=== PATIENT | female | born 2000 ===

== ENCOUNTER 2019-03-20 21:54 | Emergency (ER) | payer OTHER ==
[2019-03-20 22:06] VITALS: BP 112/71
--- NOTE | 2019-03-20 22:07 | UC ---
Throat Pain/Nasal Emile HPI - HPI Summary HPI Summary: 19 yo female presents with 2months of intermittent sinus congestion and post nasal drip with sore throat and cough. Over the last week pt has had increased sinus pressure and runny nose. She has been taking allergy medicine OTC with no relief. Denies fever, chills, sob, rash. - History of Current Complaint Chief Complaint: UCGeneralIllness Stated Complaint: COLD SYM Time Seen by Provider: 03/20/19 22:07 Hx Obtained From: Patient Hx Last Menstrual Period: IUD Onset/Duration: Gradual Onset Severity: Mild Pain Intensity: 2 Pain Scale Used: 0-10 Numeric - Allergies/Home Medications Allergies/Adverse Reactions: Allergies Allergy/AdvReac Type Severity Reaction Status Date / Time No Known Allergies Allergy Verified 03/20/19 22:02 Home Medications: Home Medications Iud 1 applic VAGINAL ONCE 03/20/19 [History Confirmed 03/20/19] PMH/Surg Hx/FS Hx/Imm Hx - Additional Past Medical History Additional PMH: None - Surgical History Surgical History: Yes Surgery Procedure, Year, and Place: Bilateral Ear tubes - Family History Known Family History: Positive: None - Social History Occupation: Student Lives: Dormitory/Roommates Alcohol Use: Weekly Alcohol Amount: 3 x weekly Substance Use Type: Marijuana Substance Use Comment - Amount & Last Used: 1 Week ago- weekend use Smoking Status (MU): Never Smoked Tobacco Review of Systems All Other Systems Reviewed And Are Negative: Yes Constitutional: Positive: Negative Skin: Positive: Negative Eyes: Positive: Negative ENT: Positive: Sore Throat, Nasal Discharge, Sinus Congestion, Sinus Pain/ Tenderness Respiratory: Positive: Negative Cardiovascular: Positive: Negative Gastrointestinal: Positive: Negative Physical Exam - Summary Physical Exam Summary: GENERAL: NAD. WDWN. No pain distress. SKIN: No rashes, sores, lesions, or open wounds. HEENT: Head: AT/NC Eyes: EOM intact. Conjunctiva clear without inflammation or discharge. Ears: Hearing grossly normal. TMs intact, no bulging, erythema, or edema. Nose: Nasal mucosa mildly swollen and erythematous with yellow/ clear discharge. TTP maxillary and frontal sinus. Positive post nasal drip Throat: Posterior oropharynx without exudates, erythema, or tonsillar enlargement. Uvula midline. NECK: Supple. Nontender. No lymphadenopathy. CHEST: CTAB. No r/r/w. No accessory muscle use. Breathing comfortably and in no distress. CV: RRR. Without m/r/g. Pulses intact. NEURO: Alert. PSYCH: Age appropriate behavior. Triage Information Reviewed: Yes Vital Signs: Initial Vital Signs Temp 98.5 F 03/20/19 22:02 Pulse 96 03/20/19 22:02 Resp 18 03/20/19 22:02 BP 112/71 03/20/19 22:02 Pulse Ox 97 03/20/19 22:02 Vital Signs Reviewed: Yes Throat Pain/Nasal Course/Dx - Course Course Of Treatment: Sinusitis. - Differential Dx/Diagnosis Provider Diagnosis: Sinusitis Discharge - Sign-Out/Discharge Documenting (check all that apply): Patient Departure All imaging exams completed and their final reports reviewed: No Studies - Discharge Plan Condition: Stable Disposition: HOME Prescriptions: Amoxicillin PO (*) [Amoxicillin 875 MG (*)] 875 mg PO BID #14 tab Patient Education Materials: Sinusitis (ED) Referrals: No Primary Care Phys,NOPCP [Primary Care Provider] - Additional Instructions: If you develop a fever, shortness of breath, chest pain, new or worsening symptoms - please call your PCP or go to the ED immediately. - Billing Disposition and Condition Condition: STABLE Disposition: Home
== END 2019-03-20 22:20 | disposition home or self-care (01) ==
LOC: UCEAST 21:54
DX: J32.9 Chronic sinusitis, unspecified (principal)
CPT/HCPCS: 99202; G0463